=== PATIENT | male | born 1985 | race Caucasian/White ===

== ENCOUNTER 2017-02-17 10:13 | Emergency (ER) | payer OTHER ==
[~2017-02-17] VITALS: Ht 195.6 cm; Wt 112.2 kg
[~2017-02-17 10:13] MED LIST: TYLENOL EXTRA500 M1 PO
[2017-02-17 12:32] LABS: HEMATOCRIT 45.6 % (38.0-50.0); MCH 26.6 PG (29.0-34.0); MCHC 32.7 G/DL (30.0-36.0); MCV 81.3 FL (86-99); RBC DIS.WIDTH-CV 12.6 % (11.8-14.6); RBC DIS.WIDTH-SD 37.6 % (39-53); RED BLOOD COUNT 5.61 M/uL (4.00-5.50); WHITE BLOOD COUNT 11.1 K/uL (4.1-10.2)
[2017-02-17 12:42] LABS: CHLORIDE 104 mEq/L (99-109); POTASSIUM 4.5 mEq/L (3.7-5.4); SODIUM 139 mEq/L (136-147)
[2017-02-17 12:44] LABS: GLUCOSE 101 mg/dL (70-99)
[2017-02-17 12:45] LABS: ANION GAP 12 MEQ/L (2-14)
[2017-02-17 12:46] LABS: TOTAL BILIRUBIN 0.7 mg/dL (0.0-1.0)
[2017-02-17 12:47] LABS: ALKALINE PHOSPHATASE 87 IU/L (3-129)
[2017-02-17 12:48] LABS: GFR ESTIMATE (CALCULATED) > 59 mL/min/
[2017-02-17 12:49] LABS: UREA NITROGEN (BUN) 5 mg/dL (9-23)
[2017-02-17 12:51] LABS: LIPASE 7 U/L (1.0-51.0)
[2017-02-17] MEDS ORDERED: ULTRAM50 MG PO (13:57)
[2017-02-17 14:13] LABS: PLAT.SUFFICIENCY ADEQUATE; PLATELET CLUMPS PRESENT - PLATELET COUNT APPEARS ADQ.; PLATELET COUNT UNABLE TO REPORT K/uL (156-360)
[2017-02-17 14:26] VITALS: BP 139/87
== END 2017-02-17 14:33 | disposition home or self-care (01) ==
LOC: EME 10:13
PROVIDERS: Emergency Medicine
DX: S22.39XA Fracture of one rib, unspecified side, initial encounter for closed fracture (principal); S20.219A Contusion of unspecified front wall of thorax, initial encounter; W10.9XXA Fall (on) (from) unspecified stairs and steps, initial encounter; F17.200 Nicotine dependence, unspecified, uncomplicated
CPT/HCPCS: 71101; 80053; 83690; 85027; 99281; 99283

== ENCOUNTER 2017-08-16 21:14 | Emergency (ER) | payer OTHER ==
[~2017-08-16] VITALS: Ht 195.6 cm; Wt 110.7 kg
[~2017-08-16 21:14] MED LIST changes: +ULTRAM50 MG PO
[2017-08-16] MEDS ORDERED: NAPROSYN500 MG PO (22:57)
[2017-08-16 23:06] VITALS: BP 144/94
== END 2017-08-16 23:09 | disposition home or self-care (01) ==
LOC: EME 21:14
DX: T22.211A Burn of second degree of right forearm, initial encounter (principal); T31.0 Burns involving less than 10% of body surface; W01.0XXA Fall on same level from slipping, tripping and stumbling without subsequent striking against object, initial encounter; X16.XXXA Contact with hot heating appliances, radiators and pipes, initial encounter; Z88.5 Allergy status to narcotic agent
CPT/HCPCS: 99281; 99285

== ENCOUNTER 2017-10-20 00:29 | Inpatient (IN) | payer OTHER ==
[~2017-10-20] VITALS: Ht 190.5 cm; Wt 96.4 kg
[~2017-10-20 00:29] MED LIST changes: +NAPROSYN500 MG PO
[2017-10-20 04:32] LABS: HEMOGLOBIN 12.5 G/DL (12.5-16.6); MCH 27.5 PG (29.0-34.0); MCHC 32.9 G/DL (30.0-36.0); MCV 83.5 FL (86-99); PLATELET COUNT 480 K/uL (156-360); RBC DIS.WIDTH-CV 13.7 % (11.8-14.6); RBC DIS.WIDTH-SD 41.9 % (39-53); RED BLOOD COUNT 4.55 M/uL (4.00-5.50); WHITE BLOOD COUNT 20.6 K/uL (4.1-10.2)
[2017-10-20 04:46] LABS: ALBUMIN 3.6 g/dL (3.2-4.8); CHLORIDE 97 mEq/L (99-109); POTASSIUM 3.7 mEq/L (3.7-5.4); SODIUM 135 mEq/L (136-147)
[2017-10-20 04:48] LABS: GLUCOSE 115 mg/dL (70-99)
[2017-10-20 04:49] LABS: TOTAL PROTEIN 8.1 g/dL (6.4-8.3)
[2017-10-20 04:50] LABS: TOTAL BILIRUBIN 0.3 mg/dL (0.0-1.0)
[2017-10-20 04:51] LABS: SERUM ETHYL ALCOHOL < 10 mg/dL
[2017-10-20 04:52] LABS: ALKALINE PHOSPHATASE 80 IU/L (3-129); CREATININE 0.9 mg/dL (0.6-1.3); GFR ESTIMATE (CALCULATED) > 59 mL/min/ (58.99-99999)
[2017-10-20 04:53] LABS: UREA NITROGEN (BUN) 6 mg/dL (9-23)
[2017-10-20 04:54] LABS: AST (GOT) 10 IU/L (2-34)
[2017-10-20 04:55] LABS: ALT (GPT) 12 IU/L (3-49); LIPASE 20 U/L (1.0-51.0)
[2017-10-20 06:14] LABS: APPEARANCE CLEAR ((CLEAR)); BILIRUBIN NEGATIVE; BLOOD NEGATIVE; COLOR YELLOW ((YELLOW)); GLUCOSE (STRIP) NEGATIVE; KETONES NEGATIVE; LEUKOCYTES NEGATIVE; NITRITE NEGATIVE; PROTEIN (STRIP) NEGATIVE; UCUL ADDED? NO; UROBILINOGEN 0.2 MG/DL (0.2-1.0)
[2017-10-20 06:23] LABS: AMPHETAMINE NEGATIVE (500 ng/mL); BARBITURATES NEGATIVE (200 ng/mL); BENZODIAZEPINES NEGATIVE (150 ng/mL); BUPRENORPHINE NEGATIVE (10 ng/mL); COCAINE NEGATIVE (150 ng/mL); METHADONE NEGATIVE (200 ng/mL); METHAMPHETAMINE NEGATIVE (500 ng/mL); OPIATES (MORPHINE) PRESUMPTIVE POSITIVE (100 ng/mL); OXYCODONE NEGATIVE (100 ng/mL); PHENCYCLIDINE NEGATIVE (25 ng/mL); PROPOXYPHENE NEGATIVE (300 ng/mL); THC CANNABINOIDS PRESUMPTIVE POSITIVE (50 ng/mL); TRICYCLIC ANTIDEPRESSANTS NEGATIVE (300 ng/mL)
[2017-10-20 08:49] VITALS: BP 180/90
[2017-10-20 16:06] VITALS: BP 139/67
[2017-10-21 00:37] VITALS: BP 109/62
[2017-10-21 06:42] LABS: HEMATOCRIT 37.3 % (38.0-50.0); HEMOGLOBIN 11.6 G/DL (12.5-16.6); MCH 26.4 PG (29.0-34.0); MCHC 31.1 G/DL (30.0-36.0); PLATELET COUNT 426 K/uL (156-360); RBC DIS.WIDTH-CV 13.9 % (11.8-14.6); RBC DIS.WIDTH-SD 43.7 % (39-53); RED BLOOD COUNT 4.39 M/uL (4.00-5.50); WHITE BLOOD COUNT 9.8 K/uL (4.1-10.2)
[2017-10-21 06:59] LABS: CHLORIDE 111 MEQ/L (99-109); CREATININE 0.8 MG/DL (0.6-1.3); GFR ESTIMATE (CALCULATED) > 59 mL/min/ (58.99-99999); POTASSIUM 3.9 MEQ/L (3.7-5.4); UREA NITROGEN (BUN) 7 mg/dL (9-23)
[2017-10-21 07:06] LABS: GLUCOSE 86 mg/dL (70-99); SODIUM 143 MEQ/L (136-147)
[2017-10-21 07:22] VITALS: BP 143/66
[2017-10-21 16:32] VITALS: BP 140/68
[2017-10-21 23:11] VITALS: BP 137/65
[2017-10-22 07:38] VITALS: BP 132/80
[2017-10-22 10:41] LABS: HEPATITIS B SURFACE ANTIGEN Nonreactive
[2017-10-22 10:42] LABS: HEPATITIS C ANTIBODY Nonreactive; HIV-1/2 AB/AG COMBO Nonreactive
[2017-10-22 16:00] VITALS: BP 188/88
[2017-10-23 01:13] VITALS: BP 145/75
[2017-10-23 06:22] LABS: BASOPHIL (%) 0.6 % (0-1); EOSINOPHIL (%) 1.4 % (0-5); EOSINOPHIL COUNT 0.1 K/uL (0-0.3); HEMATOCRIT 35.6 % (38.0-50.0); HEMOGLOBIN 11.3 G/DL (12.5-16.6); IMMATURE GRANULOCYTE (%) 0.3 % (0.0-0.7); LYMPHOCYTE (%) 12.6 % (15-42); LYMPHOCYTE COUNT 0.9 K/uL (1.0-2.8); MCH 26.7 PG (29.0-34.0); MCHC 31.7 G/DL (30.0-36.0); MONOCYTE (%) 7.5 % (3-12); MONOCYTE COUNT 0.5 K/uL (0-0.8); NEUTROPHIL (%) 77.6 % (45-76); NEUTROPHIL COUNT 5.6 K/uL (1.8-6.4); PLATELET COUNT 459 K/uL (156-360); RBC DIS.WIDTH-CV 13.6 % (11.8-14.6); RBC DIS.WIDTH-SD 42.1 % (39-53); RED BLOOD COUNT 4.24 M/uL (4.00-5.50); WHITE BLOOD COUNT 7.2 K/uL (4.1-10.2)
[2017-10-23 06:40] LABS: CHLORIDE 110 MEQ/L (99-109); CREATININE 0.8 MG/DL (0.6-1.3); GFR ESTIMATE (CALCULATED) > 59 mL/min/ (58.99-99999); GLUCOSE 95 mg/dL (70-99); POTASSIUM 3.9 MEQ/L (3.7-5.4); SODIUM 143 MEQ/L (136-147); UREA NITROGEN (BUN) 6 mg/dL (9-23)
[2017-10-23 07:01] LABS: VANCOMYCIN, TROUGH 7.5 MCG/ML (10-20)
[2017-10-23 07:34] VITALS: BP 159/81
[2017-10-23] MEDS ORDERED: SSD25GM TP (09:36)
[2017-10-23] MEDS ORDERED: AMLODIPINE BESYL5 MG PO (09:36)
[2017-10-23] MEDS ORDERED: BACTRIM,SEPT1 TABLET PO (09:36)
[2017-10-23] MEDS ORDERED: CEPHALEXIN500 MG PO (09:36)
== END 2017-10-23 13:24 | disposition home or self-care (01) | DRG 603 ==
LOC: EME 00:29 → 5EAST 05:29 → EDOF 05:29 → ENRESERV 05:30 → 5EAST 08:27
PROVIDERS: Emergency Medicine; Internal Medicine Infectious Disease; Physician Assistant; Physician Assistant Medical
DX: L03.114 Cellulitis of left upper limb (principal); B95.61 Methicillin susceptible Staphylococcus aureus infection as the cause of diseases classified elsewhere; F11.20 Opioid dependence, uncomplicated; T22.211D Burn of second degree of right forearm, subsequent encounter; T31.0 Burns involving less than 10% of body surface; X16.XXXD Contact with hot heating appliances, radiators and pipes, subsequent encounter; I10 Essential (primary) hypertension; F12.90 Cannabis use, unspecified, uncomplicated; R00.0 Tachycardia, unspecified; M60.9 Myositis, unspecified; M65.9 Synovitis and tenosynovitis, unspecified; R53.1 Weakness; F17.210 Nicotine dependence, cigarettes, uncomplicated
CPT/HCPCS: 73130; 73220; 80048; 80053; 80202; 81003; 83605; 83690; 84999; 85025; 85027; 86803; 87040; 87340; 87389; 87641; 99281; 99285; A6260; G0480; J0690; J1885; J2543; J3370; J7030; J7050; Q0177